=== PATIENT | female | born 1960 | race American Indian/Alaskan Native ===

== ENCOUNTER 2017-07-26 08:27 | Day surgery (SDC) | payer MEDICARE, OTHER ==
--- NOTE | 2017-07-26 09:16 | Short Stay Summary ---
Short Stay Documentation Date of service: 07/26/17 Narrative H&P: 57 year old presents for colonoscopy for high risk screening in view of a personal history of colon polyp at her last colonoscopy 2011. Her brother has also had polyps. - History Principal diagnosis: high risk screening, personal history of colon polyps H&P: obtained from office Past Medical History: diabetes, hypertension, hyperlipidemia, renal failure Past Surgical History: hysterectomy, tonsillectomy, Other (vascular access for dialysis) Social history: no smoking, no alcohol abuse, no prescription drug abuse - Allergies and Medications Current Medications: Allergies Sulfa (Sulfonamide Antibiotics) Allergy (Verified 07/02/15 09:43) Vomiting Home Medications Medication Instructions Recorded Confirmed Last Taken Type Carvedilol [Coreg] 12.5 mg PO DAILY 07/02/15 07/23/17 08/11/15 22:30 History Lisinopril [Zestril TAB] 40 mg PO BID 07/02/15 07/23/17 08/11/15 22:30 History Aspirin EC [Aspirin Enteric Coated 81 mg PO QDAY 08/01/15 07/23/17 07/31/15 History TAB] Insulin Regular, Human [HumuLIN R] 1 - 100 unit SUB-Q PRN PRN 08/01/15 07/23/17 08/10/15 History Isosorbibe Dinit/Hydralazine 1 each PO TID 08/01/15 07/23/17 08/11/15 22:30 History [Bidil Tablet] Levemir Flextouch 15 unit SUB-Q QHS 08/01/15 07/23/17 08/11/15 21:30 History 15 UNITS Simvastatin [Zocor TAB] 40 mg PO QHS 08/01/15 07/23/17 08/11/15 22:30 History Lansoprazole [Prevacid] 15 mg PO QDAY 08/12/15 07/23/17 08/11/15 History Oxycodone HCl/Acetaminophen 1 each PO Q6HR PRN #20 tablet 10/05/15 07/23/17 Unknown Rx [Percocet 10/325 mg] Active Medications Sodium Chloride (Nacl 0.9% 1000 Ml) 1,000 mls @ 50 mls/hr IV DIRECT MARYA - Physical exam General appearance: well-nourished HEENT: PERRLA, EOMI Lungs: Clear to auscultation Heart: Regular rate, Normal S1, Normal S2 Gastrointestinal: normal, obese Neurological: Normal speech - Hospital course Hospital course: Uneventful colonoscopy. - Disposition Condition at discharge: Good Disposition: [id number] TO HOME OR SELFCARE - Discharge Diagnoses (1) Personal history of colonic polyps Status: Acute (2) Internal hemorrhoids Status: Acute (3) Family history of colonic polyps Status: Acute (4) Encounter for screening colonoscopy Status: Acute Short Stay Discharge Plan Activity: other (no driving today) Diet: other (may resume usual diet) Additional Instructions: 1. Repeat colonoscopy for screening in 5 years. 2. First-degree relatives should be informed that polyps run in the family and to begin their colon screening at age 40 rather than age 50. Follow up with: AWA DISLA MD [Primary Care Provider] - 7 Days
[2017-07-26] MEDS: NACL 0.9% 1000 ML 1,000 ML IV SCH ×2 (09:54→10:50)
[2017-07-26] MEDS ORDERED: XYLOCAINE MPF 2% ONE (10:00)
[2017-07-26] MEDS ORDERED: DIPRIVAN 10 MG/ML IV ONE ×2 (10:14)
[2017-07-26] MEDS ORDERED: WATER FOR IRRIG STERILE IR ONE (10:15)
--- NOTE | 2017-07-26 10:54 | Operative Report ---
Operative Report Operative Report: Date of procedure: 07/26/2017 Preprocedure diagnosis: Personal history of colon polyps and family history colon polyps in a first-degree relative Post procedure diagnosis: Internal and external hemorrhoids Procedure name(s): Colonoscopy Surgeon: Shivam Perry MD Anesthesia: Monitored anesthesia care EBL: None Procedure: The indications, techniques, potential complications and alternatives , had been discussed in full detail prior to the date of the exam, and once again on the day of the exam. Questions were encouraged and answered, and consent was thereby obtained. The patient was placed in the left lateral decubitus position, and was medicated by anesthesia services. See the anesthesia records for details. The anal sphincter was digitally dilated, revealing small external hemorrhoids. Tip of a [employer] adult video colonoscope was inserted through the anal sphincter and into the rectal vault. It was then advanced proximally under continuous visualization of the lumen to the cecum without difficulty. The quality of the prep was only fair. With lavage and suctioning, mucosal visualization was adequate. No pathology was found in the cecum. The appendiceal orifice and ileocecal valve appeared normal. From the cecum, the instrument was slowly withdrawn with careful circumferential examination of the colonic mucosa. No pathology was seen in the ascending colon, hepatic flexure, transverse colon, splenic flexure, descending colon or sigmoid colon. The rectum appeared normal from the forward view. Retroflexion in the rectum revealed internal hemorrhoids without bleeding. No other pathology was found. The procedure was very well tolerated. Postprocedure she was monitored in the recovery area of the GI lab to ensure stability prior to her release. See the outpatient record for details regarding instructions to patient, medications and plans for follow-up. Final diagnosis: 1. Internal hemorrhoids 2. Otherwise normal colonoscopy to the cecum, without polyp recurrence Colon screening information: Colonoscopy and [place] 5 years ago, next colonoscopy will be in 5 years. Shivam Perry M.D. Dictated 07/26/2017 at 10:51 AM
[2017-07-26 11:17] VITALS: BP 189/86
--- NOTE | 2017-07-26 11:19 | Post Anesthesia Evaluation ---
- Post Anesthesia Evaluation Patient Participated: Yes Airway Patent: Yes Stable Respiratory Function: Yes Temp > 96.8F: Yes Pain Manageable: Yes Adequeate Hydration: Yes Anesthesia Complications: No
== END 2017-07-26 08:28 | disposition home or self-care (01) ==
LOC: GIO 08:27
PROVIDERS: ATTEND Internal Medicine Gastroenterology
DX: Z86.010 Personal history of colon polyps (principal); K64.4 Residual hemorrhoidal skin tags; K64.8 Other hemorrhoids; I10 Essential (primary) hypertension; E11.9 Type 2 diabetes mellitus without complications; E78.5 Hyperlipidemia, unspecified; Z79.899 Other long term (current) drug therapy; Z90.710 Acquired absence of both cervix and uterus; Z98.890 Other specified postprocedural states; Z79.4 Long term (current) use of insulin; Z79.82 Long term (current) use of aspirin; Z83.71 Family history of colonic polyps
CPT/HCPCS: 45378; 82962; J2704; J7030

== ENCOUNTER 2018-09-03 19:21 | Inpatient (IN) | payer MEDICARE, OTHER ==
--- NOTE | 2018-09-03 20:18 | Emergency Department Report ---
- General Chief Complaint: Wound/Laceration Stated Complaint: POST SURGICAL BLEEDING Time Seen by Provider: 09/03/18 20:00 Source: patient, EMS Mode of arrival: Stretcher Limitations: No Limitations - History of Present Illness Initial Comments: She is a 58-year-old female that presents emergent with complaints of bleeding from her new Vas-Cath site. Patient states today at 3 PM she had a vas cath placed for dialysis in her right chest. Patient states she's been having slow bleeding from the site of her sense. Patient denies profuse bleeding and soaking through the dressing. Patient denies fever and chills. Patient states she has a 3 out of 10 pain at the site. Patient states the pain is better with rest and not moving. Patient states the pain is worse with movement. Patient states that she just wants to site checked to be sure. - Related Data Home Medications Medication Instructions Recorded Confirmed Last Taken Carvedilol [Coreg] 12.5 mg PO DAILY 07/02/15 07/26/17 07/25/17 Lisinopril [Zestril TAB] 40 mg PO BID 07/02/15 07/26/17 07/25/17 Aspirin EC [Aspirin Enteric Coated 81 mg PO QDAY 08/01/15 07/26/17 07/19/17 TAB] Insulin Regular, Human [HumuLIN R] 1 - 100 unit SUB-Q PRN PRN 08/01/15 07/23/17 08/10/15 Isosorbibe Dinit/Hydralazine 1 each PO TID 08/01/15 07/26/17 07/25/17 [Bidil Tablet] Levemir Flextouch 15 unit SUB-Q QHS 08/01/15 07/23/17 08/11/15 21:30 15 UNITS Simvastatin [Zocor TAB] 40 mg PO QHS 08/01/15 07/26/17 07/23/17 Lansoprazole [Prevacid] 15 mg PO QDAY 08/12/15 07/26/17 07/25/17 Previous Rx's Medication Instructions Recorded Last Taken Type Oxycodone HCl/Acetaminophen 1 each PO Q6HR PRN #20 tablet 10/05/15 Unknown Rx [Percocet 10/325 mg] Allergies Allergy/AdvReac Type Severity Reaction Status Date / Time Sulfa (Sulfonamide Allergy Vomiting Verified 07/02/15 09:43 Antibiotics) ED Review of Systems ROS: Stated complaint: POST SURGICAL BLEEDING Other details as noted in HPI Comment: All other systems reviewed and negative Constitutional: denies: chills, fever Eyes: denies: eye pain, eye discharge, vision change ENT: denies: ear pain, throat pain Respiratory: denies: cough, shortness of breath, wheezing Cardiovascular: denies: chest pain, palpitations Endocrine: no symptoms reported Gastrointestinal: denies: abdominal pain, nausea, diarrhea Genitourinary: denies: urgency, dysuria, discharge Musculoskeletal: denies: back pain, joint swelling, arthralgia Skin: denies: rash, lesions Neurological: denies: headache, weakness, paresthesias Psychiatric: denies: anxiety, depression Hematological/Lymphatic: denies: easy bleeding, easy bruising ED Past Medical Hx - Past Medical History Previous Medical History?: Yes Hx Hypertension: Yes Hx Heart Attack/AMI: No Hx Congestive Heart Failure: Yes ("MILD") Hx Diabetes: Yes Hx GERD: Yes Hx Renal Disease: Yes (KIDNEY DOCTOR/DR. AGUIRRE [phone]) Hx Sickle Cell Disease: No Hx Seizures: No Hx Kidney Stones: Yes (NEPHROLITHIASIS) Hx Asthma: No Hx HIV: No - Surgical History Past Surgical History?: Yes Hx Appendectomy: Yes (1992) Additional Surgical History: fistula right arm- to be replaced. Vas Cath Left Upper Chest - Social History Smoking Status: Never Smoker Substance Use Type: None - Medications Home Medications: Home Medications Medication Instructions Recorded Confirmed Last Taken Type Carvedilol [Coreg] 12.5 mg PO DAILY 07/02/15 07/26/17 07/25/17 History Lisinopril [Zestril TAB] 40 mg PO BID 07/02/15 07/26/17 07/25/17 History Aspirin EC [Aspirin Enteric Coated 81 mg PO QDAY 08/01/15 07/26/17 07/19/17 History TAB] Insulin Regular, Human [HumuLIN R] 1 - 100 unit SUB-Q PRN PRN 08/01/15 07/23/17 08/10/15 History Isosorbibe Dinit/Hydralazine 1 each PO TID 08/01/15 07/26/17 07/25/17 History [Bidil Tablet] Levemir Flextouch 15 unit SUB-Q QHS 08/01/15 07/23/17 08/11/15 21:30 History 15 UNITS Simvastatin [Zocor TAB] 40 mg PO QHS 08/01/15 07/26/17 07/23/17 History Lansoprazole [Prevacid] 15 mg PO QDAY 08/12/15 07/26/17 07/25/17 History Oxycodone HCl/Acetaminophen 1 each PO Q6HR PRN #20 tablet 10/05/15 07/23/17 Unknown Rx [Percocet 10/325 mg] ED Physical Exam - General Limitations: No Limitations General appearance: alert, in no apparent distress - Head Head exam: Present: atraumatic, normocephalic - Eye Eye exam: Present: normal appearance - ENT ENT exam: Present: mucous membranes moist - Neck Neck exam: Present: normal inspection - Respiratory Respiratory exam: Present: normal lung sounds bilaterally. Absent: respiratory distress - Cardiovascular Cardiovascular Exam: Present: regular rate, normal rhythm, other (right upper chest Vas-Cath noted. Patient continues to have a slow bleed). Absent: systolic murmur, diastolic murmur, rubs, gallop - GI/Abdominal GI/Abdominal exam: Present: soft, normal bowel sounds - Extremities Exam Extremities exam: Present: normal inspection - Back Exam Back exam: Present: normal inspection - Neurological Exam Neurological exam: Present: alert, oriented X3 - Psychiatric Psychiatric exam: Present: normal affect, normal mood - Skin Skin exam: Present: warm, dry, intact, normal color. Absent: rash ED Course Vital Signs 09/03/18 19:27 Temperature 98.1 F Pulse Rate 71 Respiratory 19 Rate Blood Pressure 177/92 Blood Pressure 177/92 [Left] O2 Sat by Pulse 97 Oximetry - Reevaluation(s) Reevaluation #1: Initial evaluation done. No bleeding noted from the Vas-Cath site. Sterile dressing taken down. New dressing applied under sterile technique. Dressing Kit used. Large sterile Tegaderm placed over along with multiple 4 x 4's under the Tegaderm. Dressing change done in sterile fashion 09/03/18 20:00 starting to bleed. We'll apply pressure dressing. 09/03/18 21:03 Patient continues to bleed. Consult vascular surgery. 09/03/18 22:45 Discussed plan of care and admission with patient. Patient agrees with plan for admission. Patient admitted to the hospitalist service for further evaluation treatment. Saline bag placed directly on catheter site 09/03/18 23:05 Bleeding has improved with saline bag on top of catheter site. 09/04/18 02:09 - Consultations Consultation #1: Vascular surgery consulted. Dr. Lopez wants patient admitted for obs ervation. 09/03/18 23:03 Consultation #2: Hospitalist consult for admission. Hospitalist to assume care of patient and admit patient. 09/03/18 23:04 ED Medical Decision Making - Lab Data Result diagrams: 09/03/18 22:32 - Medical Decision Making Patient is a 58-year-old female that presents emergency room with complaints of bleeding from her newly placed Vas-Cath site. Initially patient's bleeding appeared to be controlled however while in ER patient began to bleed from her Vas-Cath site uncontrollably. Patient's bleeding is a slow oozing. Vascular surgery consultation and recommendations received. Saline bag placed on top of the site and bleeding slowed down. Patient admitted to the hospitalist service for further evaluation treatment and observation. Patient's labs unremarkable except for what appears to be chronic anemia secondary to see daily. Patient h ad a vas cath place for dialysis. - Differential Diagnosis bleeding from surgical site. Anemia Critical Care Time: Yes Critical care attestation.: If time is entered above; I have spent that time in minutes in the direct care of this critically ill patient, excluding procedure time. Critical Care Time: 45 minutes ED Disposition Clinical Impression: Anemia Qualifiers: Anemia type: unspecified type Qualified Code(s): D64.9 - Anemia, unspecified CKD (chronic kidney disease) Qualifiers: Chronic kidney disease stage: unspecified stage Qualified Code(s): N18.9 - Chronic kidney disease, unspecified Bleeding due to dialysis catheter placement Qualifiers: Encounter type: initial encounter Qualified Code(s): T82.838A - Hemorrhage due to vascular prosthetic devices, implants and grafts, initial encounter Disposition: OP ADMIT IP TO THIS HOSP Is pt being admited?: Yes Does the pt Need Aspirin: No Condition: Critical Time of Disposition: 23:07
[2018-09-03 22:51] LABS: Hematocrit 28.8 % (30.3-42.9); Hemoglobin 9.4 gm/dl (10.1-14.3); Mean Corpuscular HGB Conc 33 % (30-34); Mean Corpuscular Volume 71 fl (79-97); Platelet Count 255 K/mm3 (140-440); Red Blood Count 4.07 M/mm3 (3.65-5.03); Red Cell Distribution Width 15.6 % (13.2-15.2)
[2018-09-04] MEDS ORDERED: D50W (25GM) Syringe IV PRN (01:09)
[2018-09-04] MEDS ORDERED: PERCOCET 5/325 PO PRN (01:11)
[2018-09-04] MEDS ORDERED: ROXICODONE PO PRN (01:23)
[2018-09-04] MEDS ORDERED: ROXICODONE ONE (04:12)
[2018-09-04 06:06] LABS: Hematocrit 28.4 % (30.3-42.9); Hemoglobin 8.9 gm/dl (10.1-14.3); Mean Corpuscular HGB Conc 31 % (30-34); Mean Corpuscular Volume 73 fl (79-97); Platelet Count 233 K/mm3 (140-440); Red Blood Count 3.88 M/mm3 (3.65-5.03); Red Cell Distribution Width 15.4 % (13.2-15.2)
[2018-09-04] MEDS ORDERED: TYLENOL PO PRN (06:08)
[2018-09-04] MEDS ORDERED: ZOFRAN IV PRN (06:09)
[2018-09-04] MEDS ORDERED: MORPHINE IV PRN (06:09)
[2018-09-04] MEDS ORDERED: APRESOLINE IV PRN (06:10)
[2018-09-04 06:25] LABS: Albumin 3.5 g/dL (3.9-5); BUN/Creatinine Ratio 5; Blood Urea Nitrogen 77 mg/dL (7-17); Calcium 7.9 mg/dL (8.4-10.2); Hemolysis Index 3
[2018-09-04 06:26] LABS: Alanine Aminotransferase < 5 units/L (7-56)
--- NOTE | 2018-09-04 09:52 | History and Physical Report ---
CHIEF COMPLAINT: Bleeding from the vascath on the right anterior chest wall. HISTORY OF PRESENT ILLNESS: The patient is a 58-year-old female who had a vascath put in the afternoon of 09/03/2018 and subsequently started bleeding from the site. There was no history of fever or chills. The patient complained of pain at the site of the vascath which occurs with movement. There is no history of shortness of breath. No history of nausea or vomiting. The patient presented to the Emergency Room and was evaluated and the vascular surgeon, Dr. Lopez, was consulted and agreed to see the patient. PAST MEDICAL HISTORY: Pertinent for hypertension, congestive heart failure, diabetes mellitus, gastroesophageal reflux disease, renal failure, kidney stones. PAST SURGICAL HISTORY: Pertinent for appendectomy, right arm fistula with a recently placed vascath. FAMILY HISTORY: Noncontributory. SOCIAL HISTORY: The patient does not smoke, does not drink alcohol, and does not use illicit drugs. MEDICATIONS: The patient is on carvedilol 12.5 mg by mouth daily, lisinopril 40 mg daily, insulin regular subQ, dose unknown. The patient is also on isosorbide dinitrate/hydralazine or BiDil 1 by mouth 3 times daily. The patient is on Levemir insulin 15 units subQ at bedtime and Zocor 40 mg at bedtime as well as Prevacid 15 mg by mouth daily. The patient is also on Percocet 10/325 mg 1 by mouth every 6 hours as needed for pain. ALLERGIES: The patient is allergic to SULFA DRUGS. REVIEW OF SYSTEMS: CONSTITUTIONAL: There is no fever, no chills, no diaphoresis. HEENT: There is no headache or sore throat. CARDIOVASCULAR SYSTEM: There is pain around the vascath on the right anterior chest wall area. No orthopnea. RESPIRATORY SYSTEM: There is no shortness of breath or cough. GASTROINTESTINAL SYSTEM: There is no nausea, no vomiting, no abdominal pain, diarrhea or constipation. NEUROLOGICAL SYSTEM: There is no numbness, no dizziness, no altered mental status. MUSCULOSKELETAL SYSTEM: There is no joint pain or swelling. DERMATOLOGICAL SYSTEM: There is no skin rash or itching. GENITOURINARY SYSTEM: There is no dysuria, hematuria, or flank pain. Rest of system review is normal. PHYSICAL EXAMINATION: GENERAL: At the time of exam, the patient was found to be alert, oriented x 3, and not in acute disease. VITAL SIGNS: At the initial time of presentation showed temperature of 98.1 degrees Fahrenheit, pulse of 71, respirations 19, blood pressure 177/92, O2 sat of 97% on room air. HEENT: Showed pupils to be equal, round, and reactive to light and accommodating. Extraocular motions are intact. NECK: Supple with no JVD or carotid bruit. CARDIOVASCULAR SYSTEM: Showed normal first and second heart sounds with no gallops or murmurs. RESPIRATORY SYSTEM: Showed good air entry on both sides of the lungs with no abnormal breath sounds. GASTROINTESTINAL SYSTEM: Showed abdomen to be full, soft, nontender with no organomegaly or rigidity. NEUROLOGIC: Showed no focal deficit. MUSCULOSKELETAL SYSTEM: Showed no joint swelling or tenderness. DERMATOLOGICAL SYSTEM: Showed dressing on the right anterior chest wall soaked with blood. No skin rashes were seen. GENITOURINARY SYSTEM: Showed no costovertebral angle tenderness. PERTINENT LABS AND IMAGING STUDIES: The patient did not have any imaging studies: The patient's CBC showed normal white count with low hemoglobin of 9.4 and low hematocrit of 28.8 with low MCV of 71. The patient's glucose level was slightly elevated with a value of 124. DIAGNOSIS: Bleeding from the vascath. PLAN OF ACTION: 1. The patient will be placed on observation in medical/surgical [facility] with remote telemetry. 2. The patient will have an urgent vascular surgical consult with Dr. Lopez for management of bleeding at the vascath located in the anterior chest wall. 3. The patient will have Nephrology consult with dinkey dispatcher Dr. Love for renal failure managment. 4. The patient will have Accu-Cheks a.c and at bedtime followed by low dose sliding scale using regular insulin coverage. 5. The patient's diet will be consistent carbohydrate, low sodium diet. 6. The patient will have CBC and CMP checked this morning. 7. The patient will be on home medication as shown in the medication reconciliation section. 8. The patient will be on Tylenol 650 mg by mouth every 4 hours for fever and headache and will be on IV morphine 2 mg every 3 hours as needed for pain and also will be on IV Zofran 4 mg every 8 hours as needed for nausea and vomiting. [facility]# [id number] [facility]MAND
[2018-09-04] MEDS: BIDIL 20/37.5MG PO SCH ×3 (11:00→22:39)
[2018-09-04] MEDS: COREG PO SCH (11:01)
[2018-09-04] MEDS: PROTONIX PO SCH (11:01)
[2018-09-04] MEDS: ZESTRIL PO SCH ×2 (11:01→22:33)
[2018-09-04] MEDS: HumuLIN R SUB-Q SCH ×3 (11:02→17:19)
[2018-09-04] MEDS: MORPHINE IV PRN ×2 (11:28→22:42)
--- NOTE | 2018-09-04 12:23 | Event Note ---
Date: 09/04/18 58-year-old female patient was admitted this morning through emergency room with bleeding from the Vas-Cath of anterior chest wall, patient is being symptomatically managed Vascular and nephrology consulted, Medical records reviewed, agree with the current management, follow vascular and nephrology evaluation and recommendations
[2018-09-04] MEDS ORDERED: NACL 0.9% 1000 ML 1,000 ML ONE (13:44)
[2018-09-04] MEDS ORDERED: DDAVP 25 MCG in NACL 0.9% 50 ML IV ONE (13:46)
--- NOTE | 2018-09-04 13:59 | Consultation ---
History of Present Illness - Reason for Consult Consult date: 09/04/18 bleeding from permcath site Requesting physician: CHRISTY BARRIGA III - History of Present Illness Patient with long-standing dialysis history and previous permanent access creations bilaterally was left on the right was sent to dialysis Center for declot of her right upper extremity access. This was unsuccessful and right IJ PermCath was placed. Patient had significant bleeding from the site that caused her to get to ER. multiple dressings were changed and vascular surgery called. As recommended pressure dressing was placed and bleeding subsided. Patient missed a few dialysis sessions. Her previous dialysis access was created by Dr. Darnell at [place]. Past History Past Medical History: hypertension, renal failure Past Surgical History: Other (the fistula placement bilaterally) Medications and Allergies Allergies Allergy/AdvReac Type Severity Reaction Status Date / Time Sulfa (Sulfonamide Allergy Vomiting Verified 07/02/15 09:43 Antibiotics) Home Medications Medication Instructions Recorded Confirmed Last Taken Type Carvedilol [Coreg] 12.5 mg PO DAILY 07/02/15 07/26/17 07/25/17 History Lisinopril [Zestril TAB] 40 mg PO BID 07/02/15 07/26/17 07/25/17 History Aspirin EC [Aspirin Enteric Coated 81 mg PO QDAY 08/01/15 07/26/17 07/19/17 History TAB] Insulin Regular, Human [HumuLIN R] 1 - 100 unit SUB-Q PRN PRN 08/01/15 07/23/17 08/10/15 History Isosorbibe Dinit/Hydralazine 1 each PO TID 08/01/15 07/26/17 07/25/17 History [Bidil Tablet] Levemir Flextouch 15 unit SUB-Q QHS 08/01/15 07/23/17 08/11/15 21:30 History 15 UNITS Simvastatin [Zocor TAB] 40 mg PO QHS 08/01/15 07/26/17 07/23/17 History Lansoprazole [Prevacid] 15 mg PO QDAY 08/12/15 07/26/17 07/25/17 History Oxycodone HCl/Acetaminophen 1 each PO Q6HR PRN #20 tablet 10/05/15 07/23/17 Unknown Rx [Percocet 10/325 mg] Active Meds: Active Medications Acetaminophen (Tylenol) 650 mg PO Q4H PRN PRN Reason: Fever >101 Carvedilol (Coreg) 12.5 mg PO DAILY [facility] Last Admin: 09/04/18 11:01 Dose: 12.5 mg Documented by: Dextrose (D50w (25gm) Syringe) 50 ml IV PRN PRN PRN Reason: Hypoglycemia Hydralazine HCl (Apresoline) 20 mg IV Q6H PRN PRN Reason: Blood Pressure Last Admin: 09/04/18 06:50 Dose: 20 mg Documented by: Desmopressin Acetate 25 mcg/ (Sodium Chloride) 56.25 mls @ 100 mls/hr IV ONCE ONE Stop: 09/04/18 14:19 Insulin Human Regular (Humulin R) 0 units SUB-Q AC [facility]; Protocol Last Admin: 09/04/18 11:02 Dose: Not Given Documented by: Insulin Human Regular (Humulin R) 0 units SUB-Q QHS [facility]; Protocol Isosorbide Dinitrate/Hydralazine (Bidil 20/37.5mg) 1 each PO TID [facility] Last Admin: 09/04/18 13:51 Dose: Not Given Documented by: Lisinopril (Zestril) 40 mg PO BID [facility] Last Admin: 09/04/18 11:01 Dose: 40 mg Documented by: Morphine Sulfate (Morphine) 2 mg IV Q3H PRN PRN Reason: Pain , MODERATE Last Admin: 09/04/18 11:28 Dose: 2 mg Documented by: Ondansetron HCl (Zofran) 4 mg IV Q4H PRN PRN Reason: Nausea And Vomiting Oxycodone HCl (Roxicodone) 5 mg PO Q6H PRN PRN Reason: Pain, Moderate (4-6) Last Admin: 09/04/18 04:14 Dose: 5 mg Documented by: Oxycodone/Acetaminophen (Percocet 5/325) 1 tab PO Q6H PRN PRN Reason: Pain, Moderate (4-6) Last Admin: 09/04/18 04:15 Dose: 1 tab Documented by: Pantoprazole Sodium (Protonix) 20 mg PO QDAY [facility] Last Admin: 09/04/18 11:01 Dose: 20 mg Documented by: Pravastatin Sodium (Pravachol) 80 mg PO QHS [facility] Review of Systems All systems: negative (mentioned in HPI) Exam - Physical Exam Narrative exam: Right IJ PermCath with saturated dressing and clotted blood. - Constitutional Vitals: Temp Pulse Resp BP Pulse Ox 98.3 F 70 18 130/55 97 09/04/18 11:46 09/04/18 11:46 09/04/18 11:46 09/04/18 11:46 09/04/18 11:46 Results - Labs CBC & Chem 7: 09/04/18 05:35 09/04/18 05:35 Labs: Abnormal lab results 09/03/18 09/04/18 09/04/18 Range/Units 22:32 03:21 05:35 Hgb 9.4 L 8.9 L (10.1-14.3) gm/dl Hct 28.8 L 28.4 L (30.3-42.9) % MCV 71 L 73 L (79-97) fl MCH 23 L 23 L (28-32) pg RDW 15.6 H 15.4 H (13.2-15.2) % Sodium (137-145) mmol/L Carbon Dioxide (22-30) mmol/L BUN (7-17) mg/dL Creatinine (0.7-1.2) mg/dL Glucose (65-100) mg/dL POC Glucose 124 H (70-105) Calcium (8.4-10.2) mg/dL ALT (7-56) units/L Albumin (3.9-5) g/dL 09/04/18 Range/Units 05:35 Hgb (10.1-14.3) gm/dl Hct (30.3-42.9) % MCV (79-97) fl MCH (28-32) pg RDW (13.2-15.2) % Sodium 134 L (137-145) mmol/L Carbon Dioxide 17 L (22-30) mmol/L BUN 77 H (7-17) mg/dL Creatinine 15.7 H (0.7-1.2) mg/dL Glucose 108 H (65-100) mg/dL POC Glucose (70-105) Calcium 7.9 L (8.4-10.2) mg/dL ALT < 5 L (7-56) units/L Albumin 3.5 L (3.9-5) g/dL Assessment and Plan End-stage renal disease on hemodialysis with failed permanent access, status post PermCath placement with bleeding Patient is seen at the bedside, her saturated clotted dressing was changed, clot was removed and cleaned, dressing was placed under sterile conditions Pressure dressing was applied using saline back and manual pressure. Patient might have uremic platelet dysfunction and 0.3 mcg/kg of DDAVP was ordered to be given over 30 minutes.
[2018-09-04] MEDS: PRAVACHOL PO SCH (22:39)
[2018-09-05] MEDS: HumuLIN R SUB-Q SCH ×5 (00:13→22:04)
[2018-09-05 03:41] LABS: Basophils # (Auto) 0.1 K/mm3 (0.0-0.1); Eosinophils # (Auto) 0.2 K/mm3 (0.0-0.4); Eosinophils % (Auto) 3.4 % (0.0-4.3); Hematocrit 24.6 % (30.3-42.9); Hemoglobin 7.8 gm/dl (10.1-14.3); Lymphocytes # (Auto) 1.3 K/mm3 (1.2-5.4); Mean Corpuscular HGB Conc 32 % (30-34); Mean Corpuscular Volume 72 fl (79-97); Monocytes # (Auto) 0.8 K/mm3 (0.0-0.8); Monocytes % (Auto) 12.8 % (0.0-7.3); Platelet Count 195 K/mm3 (140-440); Red Cell Distribution Width 15.5 % (13.2-15.2)
[2018-09-05 03:52] LABS: Calcium 7.8 mg/dL (8.4-10.2)
[2018-09-05] MEDS: BIDIL 20/37.5MG PO SCH ×3 (08:00→20:58)
--- NOTE | 2018-09-05 09:31 | Progress Note ---
Subjective Date of service: 09/05/18 Interval history: Patient with right upper extremity thrombosed AV access status post placement of right neck tunneled hemodialysis catheter. She has has no further bleeding since admission. The patient will ultimately require thrombectomy of her AV access versus creation of a new access. We'll obtain vascular ultrasound of her upper extremities as she has previously had accesses on both arms. Patient dialyzed as Wednesday. Her thrombectomy and/or possible surgery will not require continued admission and wants to and is stable for discharge, she may be discharged follow-up as an outpatient for either procedure. Objective - Constitutional Vitals: Vital Signs - 12hr 09/04/18 09/04/18 09/04/18 22:33 22:39 23:51 Temperature 97.4 F L Pulse Rate 71 71 72 Respiratory 18 Rate Blood Pressure 141/71 141/70 122/66 O2 Sat by Pulse 91 Oximetry 09/05/18 05:59 Temperature 98.4 F Pulse Rate 74 Respiratory 18 Rate Blood Pressure 138/67 O2 Sat by Pulse 92 Oximetry - Labs CBC & Chem 7: 09/05/18 03:05 09/05/18 03:05 Labs: Abnormal lab results 09/05/18 09/05/18 09/05/18 Range/Units 03:05 03:05 08:27 RBC 3.40 L (3.65-5.03) M/mm3 Hgb 7.8 L (10.1-14.3) gm/dl Hct 24.6 L (30.3-42.9) % MCV 72 L (79-97) fl MCH 23 L (28-32) pg RDW 15.5 H (13.2-15.2) % [place] % (Auto) 12.8 H (0.0-7.3) % Sodium 135 L (137-145) mmol/L Carbon Dioxide 18 L (22-30) mmol/L BUN 85 H (7-17) mg/dL Creatinine 16.9 H (0.7-1.2) mg/dL Glucose 115 H (65-100) mg/dL POC Glucose 130 H (70-105) Calcium 7.8 L (8.4-10.2) mg/dL Medications & Allergies - Medications Allergies/Adverse Reactions: Allergies Sulfa (Sulfonamide Antibiotics) Allergy (Verified 07/02/15 09:43) Vomiting Home Medications: Home Medications Medication Instructions Recorded Confirmed Last Taken Type Carvedilol [Coreg] 12.5 mg PO DAILY 07/02/15 07/26/17 07/25/17 History Lisinopril [Zestril TAB] 40 mg PO BID 07/02/15 07/26/17 07/25/17 History Aspirin EC [Aspirin Enteric Coated 81 mg PO QDAY 08/01/15 07/26/17 07/19/17 History TAB] Insulin Regular, Human [HumuLIN R] 1 - 100 unit SUB-Q PRN PRN 08/01/15 07/23/17 08/10/15 History Isosorbibe Dinit/Hydralazine 1 each PO TID 08/01/15 07/26/17 07/25/17 History [Bidil Tablet] Levemir Flextouch 15 unit SUB-Q QHS 08/01/15 07/23/17 08/11/15 21:30 History 15 UNITS Simvastatin [Zocor TAB] 40 mg PO QHS 08/01/15 07/26/17 07/23/17 History Lansoprazole [Prevacid] 15 mg PO QDAY 08/12/15 07/26/17 07/25/17 History Oxycodone HCl/Acetaminophen 1 each PO Q6HR PRN #20 tablet 10/05/15 07/23/17 Unknown Rx [Percocet 10/325 mg] Active Medications: Generic Name Dose Route Start Last Admin Trade Name Freq PRN Reason Stop Dose Admin Acetaminophen 650 mg 09/04/18 06:08 Tylenol PO Q4H PRN Fever >101 Carvedilol 12.5 mg 09/04/18 10:00 09/04/18 11:01 Coreg PO 12.5 mg DAILY MARYA Administration Dextrose 50 ml 09/04/18 01:09 D50w (25gm) Syringe IV PRN PRN Hypoglycemia Hydralazine HCl 20 mg 09/04/18 06:10 09/04/18 06:50 Apresoline IV 20 mg Q6H PRN Administration Blood Pressure Insulin Human Regular 0 units 09/04/18 07:30 09/04/18 17:19 Humulin R SUB-Q Not Given [facility] Protocol Insulin Human Regular 0 units 09/04/18 22:00 09/05/18 00:13 Humulin R SUB-Q Not Given QHS [facility] Protocol Isosorbide Dinitrate/Hydralazine 1 each 09/04/18 08:00 09/04/18 22:39 Bidil 20/37.5mg PO 1 each TID MARYA Administration Lisinopril 40 mg 09/04/18 10:00 09/04/18 22:33 Zestril PO 40 mg BID MARYA Administration Morphine Sulfate 2 mg 09/04/18 11:16 09/04/18 22:42 Morphine IV 2 mg Q3H PRN Administration Pain , MODERATE Ondansetron HCl 4 mg 09/04/18 06:09 09/04/18 14:50 Zofran IV 4 mg Q4H PRN Administration Nausea And Vomiting Oxycodone HCl 5 mg 09/04/18 01:23 09/04/18 04:14 Roxicodone PO 5 mg Q6H PRN Administration Pain, Moderate (4-6) Oxycodone/Acetaminophen 1 tab 09/04/18 01:11 09/04/18 04:15 Percocet 5/325 PO 1 tab Q6H PRN Administration Pain, Moderate (4-6) Pantoprazole Sodium 20 mg 09/04/18 10:00 09/04/18 11:01 Protonix PO 20 mg QDAY [facility] Administration Pravastatin Sodium 80 mg 09/04/18 22:00 09/04/18 22:39 Pravachol PO 80 mg QHS MARYA Administration
[2018-09-05] MEDS: COREG PO SCH (10:09)
[2018-09-05] MEDS: ZESTRIL PO SCH ×2 (10:09→22:05)
[2018-09-05] MEDS: PROTONIX PO SCH (10:09)
--- NOTE | 2018-09-05 10:54 | Progress Note ---
Assessment and Plan Assessment and plan: Patient with history of long-standing hemodialysis was sent from the dialysis center recently for declot of her right upper extremity HD access. Patient had right IJ permacath was placed recently, patient returned to the ER and was admitted with significant bleeding from the site, patient was evaluated by vascular, bleeding was controlled by pressure dressing, and is scheduled for hemodialysis today --End-stage renal disease on hemodialysis; hemodialysis per schedule Nephrology following --Hypertension; moderate control, continue current antihypertensives and when necessary medications --Type 2 diabetes mellitus; Accu-Chek sliding scale coverage and ADA diet and insulin as needed --Obesity; BMI 32.3, advise weight reduction when medically stable --DVT prophylaxis; heparin and renal dose --Discharge Planning per case management Closely monitor the patient and adjust management as needed Possible discharge in 1-2 days if stable Disposition; possible discharge in 1-2 days if stable History Interval history: Patient seen and examined medical records reviewed Patient feels slightly better Scheduled for hemodialysis today Alert awake oriented 3 Vital signs noted Hospitalist Physical - Constitutional Vitals: Temp Pulse Resp BP Pulse Ox 98.4 F 74 18 138/67 92 09/05/18 05:59 09/05/18 05:59 09/05/18 05:59 09/05/18 05:59 09/05/18 05:59 General appearance: Present: no acute distress, well-nourished, obese - EENT Eyes: Present: PERRL, EOM intact - Neck Neck: Present: supple, normal ROM - Respiratory Respiratory effort: normal Respiratory: bilateral: diminished, negative: rales, rhonchi, wheezing - Cardiovascular Rhythm: regular Heart Sounds: Present: S1 & S2 - Extremities Extremities: no ischemia, No edema - Abdominal General gastrointestinal: soft, non-tender, non-distended, normal bowel sounds - Integumentary Integumentary: Present: clear, warm - Psychiatric Psychiatric: appropriate mood/affect, cooperative - Neurologic Neurologic: CNII-XII intact, moves all extremities Results - Labs CBC & Chem 7: 09/05/18 03:05 09/05/18 03:05 Labs: Laboratory Last Values WBC 6.6 K/mm3 (4.5-11.0) 09/05/18 03:05 RBC 3.40 M/mm3 (3.65-5.03) L 09/05/18 03:05 Hgb 7.8 gm/dl (10.1-14.3) L 09/05/18 03:05 Hct 24.6 % (30.3-42.9) L 09/05/18 03:05 MCV 72 fl (79-97) L 09/05/18 03:05 MCH 23 pg (28-32) L 09/05/18 03:05 MCHC 32 % (30-34) 09/05/18 03:05 RDW 15.5 % (13.2-15.2) H 09/05/18 03:05 Plt Count 195 K/mm3 (140-440) 09/05/18 03:05 Lymph % (Auto) 20.0 % (13.4-35.0) 09/05/18 03:05 [place] % (Auto) 12.8 % (0.0-7.3) H 09/05/18 03:05 Eos % (Auto) 3.4 % (0.0-4.3) 09/05/18 03:05 Baso % (Auto) 1.0 % (0.0-1.8) 09/05/18 03:05 Lymph # 1.3 K/mm3 (1.2-5.4) 09/05/18 03:05 [place] # 0.8 K/mm3 (0.0-0.8) 09/05/18 03:05 Eos # 0.2 K/mm3 (0.0-0.4) 09/05/18 03:05 Baso # 0.1 K/mm3 (0.0-0.1) 09/05/18 03:05 Seg Neutrophils % 62.8 % (40.0-70.0) 09/05/18 03:05 Seg Neutrophils # 4.2 K/mm3 (1.8-7.7) 09/05/18 03:05 Sodium 135 mmol/L (137-145) L 09/05/18 03:05 Potassium 4.5 mmol/L (3.6-5.0) 09/05/18 03:05 Chloride 98.9 mmol/L (98-107) 09/05/18 03:05 Carbon Dioxide 18 mmol/L (22-30) L 09/05/18 03:05 Anion Gap 23 mmol/L 09/05/18 03:05 BUN 85 mg/dL (7-17) H 09/05/18 03:05 Creatinine 16.9 mg/dL (0.7-1.2) H 09/05/18 03:05 Estimated GFR 3 ml/min 09/05/18 03:05 BUN/Creatinine Ratio 5 % 09/05/18 03:05 Glucose 115 mg/dL (65-100) H 09/05/18 03:05 POC Glucose 130 (70-105) H 09/05/18 08:27 Calcium 7.8 mg/dL (8.4-10.2) L 09/05/18 03:05 Total Bilirubin 0.30 mg/dL (0.1-1.2) 09/04/18 05:35 AST 10 units/L (5-40) 09/04/18 05:35 ALT < 5 units/L (7-56) L 09/04/18 05:35 Alkaline Phosphatase 83 units/L (35-129) 09/04/18 05:35 Total Protein 6.7 g/dL (6.3-8.2) 09/04/18 05:35 Albumin 3.5 g/dL (3.9-5) L 09/04/18 05:35 Albumin/Globulin Ratio 1.1 % 09/04/18 05:35
--- NOTE | 2018-09-05 11:16 | Consultation ---
History of Present Illness - Reason for Consult Consult date: 09/05/18 end stage renal disease Requesting physician: OREN FOSTER - History of Present Illness She is a 58-year-old female that presents emergent with complaints of bleeding from her new Vas-Cath site. Patient states today at 3 PM she had a vas cath placed for dialysis in her right chest. Patient states she's been having slow bleeding from the site of her sense. Patient denies profuse bleeding and soaking through the dressing. Patient denies fever and chills. Patient states she has a 3 out of 10 pain at the site. Patient states the pain is better with rest and not moving. Patient states the pain is worse with movement. Patient states that she just wants to site checked to be sure. ROS: Stated complaint: POST SURGICAL BLEEDING Other details as noted in HPI Comment: All other systems reviewed and negative Constitutional: denies: chills, fever Eyes: denies: eye pain, eye discharge, vision change ENT: denies: ear pain, throat pain Respiratory: denies: cough, shortness of breath, wheezing Cardiovascular: denies: chest pain, palpitations Endocrine: no symptoms reported Gastrointestinal: denies: abdominal pain, nausea, diarrhea Genitourinary: denies: urgency, dysuria, discharge Musculoskeletal: denies: back pain, joint swelling, arthralgia Skin: denies: rash, lesions Neurological: denies: headache, weakness, paresthesias Psychiatric: denies: anxiety, depression Hematological/Lymphatic: denies: easy bleeding, easy bruising - Past Medical History Previous Medical History?: Yes Hx Hypertension: Yes Hx Heart Attack/AMI: No Hx Congestive Heart Failure: Yes ("MILD") Hx Diabetes: Yes Hx GERD: Yes Hx Renal Disease: Yes (KIDNEY DOCTOR/DR. AGUIRRE [phone]) Hx Sickle Cell Disease: No Hx Seizures: No Hx Kidney Stones: Yes (NEPHROLITHIASIS) Hx Asthma: No Hx HIV: No - Surgical History Past Surgical History?: Yes Hx Appendectomy: Yes (1992) Additional Surgical History: fistula right arm- to be replaced. Vas Cath Left Upper Chest - Social History Smoking Status: Never Smoker Substance Use Type: None Past History Past Medical History: hypertension, renal failure Past Surgical History: Other (the fistula placement bilaterally) Medications and Allergies Allergies Allergy/AdvReac Type Severity Reaction Status Date / Time Sulfa (Sulfonamide Allergy Vomiting Verified 07/02/15 09:43 Antibiotics) Home Medications Medication Instructions Recorded Confirmed Last Taken Type Carvedilol [Coreg] 12.5 mg PO DAILY 07/02/15 07/26/17 07/25/17 History Lisinopril [Zestril TAB] 40 mg PO BID 07/02/15 07/26/17 07/25/17 History Aspirin EC [Aspirin Enteric Coated 81 mg PO QDAY 08/01/15 07/26/17 07/19/17 History TAB] Insulin Regular, Human [HumuLIN R] 1 - 100 unit SUB-Q PRN PRN 08/01/15 07/23/17 08/10/15 History Isosorbibe Dinit/Hydralazine 1 each PO TID 08/01/15 07/26/17 07/25/17 History [Bidil Tablet] Levemir Flextouch 15 unit SUB-Q QHS 08/01/15 07/23/17 08/11/15 21:30 History 15 UNITS Simvastatin [Zocor TAB] 40 mg PO QHS 08/01/15 07/26/17 07/23/17 History Lansoprazole [Prevacid] 15 mg PO QDAY 08/12/15 07/26/17 07/25/17 History Oxycodone HCl/Acetaminophen 1 each PO Q6HR PRN #20 tablet 10/05/15 07/23/17 Unknown Rx [Percocet 10/325 mg] Active Meds: Active Medications Acetaminophen (Tylenol) 650 mg PO Q4H PRN PRN Reason: Fever >101 Carvedilol (Coreg) 12.5 mg PO DAILY [facility] Last Admin: 09/05/18 10:09 Dose: 12.5 mg Documented by: Dextrose (D50w (25gm) Syringe) 50 ml IV PRN PRN PRN Reason: Hypoglycemia Hydralazine HCl (Apresoline) 20 mg IV Q6H PRN PRN Reason: Blood Pressure Last Admin: 09/04/18 06:50 Dose: 20 mg Documented by: Insulin Human Regular (Humulin R) 0 units SUB-Q [facility]; Protocol Last Admin: 09/05/18 07:30 Dose: Not Given Documented by: Insulin Human Regular (Humulin R) 0 units SUB-Q [facility]; Protocol Last Admin: 09/05/18 00:13 Dose: Not Given Documented by: Isosorbide Dinitrate/Hydralazine (Bidil 20/37.5mg) 1 each PO TID [facility] Last Admin: 09/05/18 08:00 Dose: Not Given Documented by: Lisinopril (Zestril) 40 mg PO BID [facility] Last Admin: 09/05/18 10:09 Dose: 40 mg Documented by: Morphine Sulfate (Morphine) 2 mg IV Q3H PRN PRN Reason: Pain , MODERATE Last Admin: 09/04/18 22:42 Dose: 2 mg Documented by: Ondansetron HCl (Zofran) 4 mg IV Q4H PRN PRN Reason: Nausea And Vomiting Last Admin: 09/04/18 14:50 Dose: 4 mg Documented by: Oxycodone HCl (Roxicodone) 5 mg PO Q6H PRN PRN Reason: Pain, Moderate (4-6) Last Admin: 09/04/18 04:14 Dose: 5 mg Documented by: Oxycodone/Acetaminophen (Percocet 5/325) 1 tab PO Q6H PRN PRN Reason: Pain, Moderate (4-6) Last Admin: 09/04/18 04:15 Dose: 1 tab Documented by: Pantoprazole Sodium (Protonix) 20 mg PO QDAY [facility] Last Admin: 09/05/18 10:09 Dose: 20 mg Documented by: Pravastatin Sodium (Pravachol) 80 mg PO QHS [facility] Last Admin: 09/04/18 22:39 Dose: 80 mg Documented by: Exam - Vital Signs Vital signs: Vital Signs Temp Pulse Resp BP Pulse Ox 98.1 F 71 19 177/92 97 09/03/18 19:27 09/03/18 19:27 09/03/18 19:27 09/03/18 19:27 09/03/18 19:27 - Physical Exam Narrative exam: - General Limitations: No Limitations General appearance: alert, in no apparent distress - Head Head exam: Present: atraumatic, normocephalic - Eye Eye exam: Present: normal appearance - ENT ENT exam: Present: mucous membranes moist - Neck Neck exam: Present: normal inspection - Respiratory Respiratory exam: Present: normal lung sounds bilaterally. Absent: respiratory distress - Cardiovascular Cardiovascular Exam: Present: regular rate, normal rhythm, other (right upper chest Vas-Cath noted. Patient continues to have a slow bleed). Absent: systolic murmur, diastolic murmur, rubs, gallop - GI/Abdominal GI/Abdominal exam: Present: soft, normal bowel sounds - Extremities Exam Extremities exam: Present: normal inspection - Back Exam Back exam: Present: normal inspection - Neurological Exam Neurological exam: Present: alert, oriented X3 - Psychiatric Psychiatric exam: Present: normal affect, normal mood - Skin Skin exam: Present: warm, dry, intact, normal color. Absent: rash Results - Lab Results 09/05/18 03:05 09/05/18 03:05 Most recent lab results Calcium 7.8 mg/dL (8.4-10.2) L 09/05/18 03:05 Assessment and Plan Impression: * ESRD * anemia esrd * Bleed tunnelled catheter site * HTN Plan: * hd today * no heparin * strict i/os * daily lytes * uf as tolerated with hd * ok to dc once ok with vascular
[2018-09-05] MEDS ORDERED: PROCRIT IV PRN (11:43)
[2018-09-05] MEDS ORDERED: IRON SUCROSE IV SCH (12:00)
[2018-09-05] MEDS ORDERED: HEPARIN IV ONE (12:00)
[2018-09-05] MEDS ORDERED: NACL 0.9% 100 ML IV PRN ×2 (12:00→16:26)
[2018-09-05 17:17] LABS: Hepatitis B Surface Antigen Non-Reactive (Negative); Hepatitis C Virus Antibody Non-Reactive (NonReactive)
[2018-09-05] MEDS ORDERED: NACL 0.9 (PRIMING MACHINE ONLY DIALYSIS) MC ONE (18:01)
[2018-09-05] MEDS: PRAVACHOL PO SCH (22:05)
[2018-09-05] MEDS: MORPHINE IV PRN (22:41)
[2018-09-06 06:22] LABS: Basophils # (Auto) 0.1 K/mm3 (0.0-0.1); Basophils % (Auto) 0.8 % (0.0-1.8); Eosinophils # (Auto) 0.3 K/mm3 (0.0-0.4); Eosinophils % (Auto) 3.4 % (0.0-4.3); Hematocrit 26.3 % (30.3-42.9); Hemoglobin 8.3 gm/dl (10.1-14.3); Lymphocytes # (Auto) 1.4 K/mm3 (1.2-5.4); Lymphocytes % (Auto) 17.9 % (13.4-35.0); Mean Corpuscular HGB Conc 32 % (30-34); Mean Corpuscular Volume 71 fl (79-97); Monocytes # (Auto) 1.2 K/mm3 (0.0-0.8); Monocytes % (Auto) 15.1 % (0.0-7.3); Platelet Count 192 K/mm3 (140-440); Red Cell Distribution Width 15.3 % (13.2-15.2)
[2018-09-06 06:52] LABS: Calcium 8.2 mg/dL (8.4-10.2)
[2018-09-06] MEDS: HumuLIN R SUB-Q SCH ×2 (07:30→11:30)
[2018-09-06] MEDS: BIDIL 20/37.5MG PO SCH ×2 (10:00→13:16)
[2018-09-06] MEDS: PROTONIX PO SCH (12:38)
[2018-09-06] MEDS: ZESTRIL PO SCH (12:38)
[2018-09-06] MEDS: COREG PO SCH (12:39)
[2018-09-06 12:49] VITALS: BP 138/70
--- NOTE | 2018-09-06 13:08 | Event Note ---
Date: 09/06/18 PermCath functioning well, no bleeding Patient will follow up in our office to plan for permanent access.
--- NOTE | 2018-09-06 14:04 | Discharge Summary ---
Providers - Providers Date of Admission: 09/04/18 03:41 Date of discharge: 09/06/18 Attending physician: HANNAH CABRERA 09/04/18 01:04 Consult to Physician [CONS] Urgent Comment: Consulting Provider: OREN FOSTER Physician Instructions: Reason For Exam: BLEEDING FROM RECENTLY PLACED RT CHEST VASCATH. 09/05/18 10:50 Consult to Physician [CONS] Routine Comment: Consulting Provider: JEAN TEMPLETON Physician Instructions: Reason For Exam: ESRD on HD Primary care physician: SINAN VERGARA Hospitalization Condition: Stable Hospital course: Patient is a 58 yo woman with a history of IDDM, hypertension, dyslipidemia, ESRD on hemodialysis who presented to [facility] ED with bleeding from her new perm-a-cath site. 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 Disposition: DC-01 TO HOME OR SELFCARE Time spent for discharge: 35 minutes Core Measure Documentation - Palliative Care Palliative Care/ Comfort Measures: Not Applicable - Core Measures Any of the following diagnoses?: none - VTE Discharge Requirements Deep Vein Thrombosis/Pulmonary Embolism Present on Admission: No Has pt received <5 days of overlap therapy or INR<2.0: No Anticoagulant overlap therapy prescribed at discharge: No Contraindication No Overlap Therapy order at DC: Not Indicated Exam - Constitutional Vitals: Temp Pulse Resp BP Pulse Ox 98.1 F 77 20 138/70 94 09/06/18 12:02 09/06/18 12:02 09/06/18 12:02 09/06/18 12:02 09/06/18 12:02 General appearance: Present: no acute distress - EENT Eyes: Present: PERRL ENT: hearing intact - Neck Neck: Present: supple - Respiratory Respiratory effort: normal Respiratory: bilateral: CTA - Cardiovascular Rhythm: regular Heart Sounds: Present: S1 & S2 - Abdominal General gastrointestinal: Present: soft, non-tender, non-distended, normal bowel sounds - Integumentary Integumentary: Present: clear, dry - Musculoskeletal Musculoskeletal: strength equal bilaterally - Psychiatric Psychiatric: appropriate mood/affect - Neurologic Neurologic: CNII-XII intact, no focal deficits, moves all extremities Plan Activity: other (no strenous activity unless cleared by PCP) Diet: renal Follow up with: SINAN VERGARA MD [Primary Care Provider] - 3-5 Days OREN FOSTER DO [Staff Physician] - 7 Days JEAN TEMPLETON MD [Staff Physician] - 7 Days
--- NOTE | 2018-09-06 14:09 | Vascular Lab Report ---
FINAL REPORT EXAM: VL HEMODIALYSIS ACCESS HISTORY: evaluate upper extremities for dialysis fistula COMPARISON: None. TECHNIQUE: Duplex ultrasound of the right upper extremity arterial venous fistula was performed. FINDINGS: There is an occluded arteriovenous fistula. The right brachial artery is patent with a peak systolic velocity of 76 centimeters/second. IMPRESSION: Occluded right arterial venous fistula. Right brachial artery is patent with peak systolic velocity of 76 centimeters/second.
--- NOTE | 2018-09-06 14:59 | Vascular Lab Report ---
FINAL REPORT EXAM: VL VENOUS DUPLEX UE BILAT HISTORY: evaluate upper extremities for dialysis fistula COMPARISON: None. TECHNIQUE: Bilateral vein mapping was performed. FINDINGS: There is a right brachial artery to basilic vein arterial venous fistula that is occluded. There is also an old left brachial artery to basilic vein arterial venous fistula that is occluded. Diameters of the veins of the bilateral upper extremities are as follows (centimeters): Right internal jugular vein: 0.44 Right subclavian vein: 1.17 Right axillary vein: 1.02 Right brachial vein is bifurcated Medial branch, proximal: 0.77 Medial branch mid: 0.44 Medial branch distal: 0.39 Lateral branch: Proximal: 0.53 Lateral branch, mid: 0.48 Lateral branch distal: 0.42 Right cephalic vein, proximal: 0.36 Right cephalic vein at the level of the antecubital fossa: 0.26 Right cephalic vein in the proximal forearm: 0.36 Right cephalic vein in the mid forearm: 0.38 Right cephalic vein in the distal forearm: 0.18 Left internal jugular vein: 1.29 Left subclavian vein: 0.93 Left axillary vein: 0.83 Left ht brachial vein is bifurcated Medial branch, proximal: 1.02 Medial branch mid: 0.58 Medial branch distal: 0.25 Lateral branch: Proximal: 0.67 Lateral branch, mid: 0.26 Lateral branch distal: 0.24 Left cephalic vein, proximal: 0.33 Left cephalic vein at the level of the antecubital fossa: 0.25 Left cephalic vein in the proximal forearm: 0.09 Left cephalic vein in the mid forearm: 0.08 Left cephalic vein in the distal forearm: 0.09 Peak systolic velocity of the right brachial artery is 78 centimeters/second. Peak systolic velocity of the right radial artery is 49 centimeters/second. Peak systolic velocity of the left brachial artery is 74 centimeters/second. Peak systolic velocity of the left radial artery is 45 centimeters/second. IMPRESSION: Vein mapping of the bilateral upper extremities as described above. Occluded prior bilateral arterial venous fistulous.
--- NOTE | 2018-09-06 15:41 | Progress Note ---
Assessment and Plan Impression: * ESRD * anemia esrd * Bleed tunnelled catheter site * HTN Plan: * hd qMWF * no heparin * strict i/os * daily lytes * uf as tolerated with hd * ok to dc once ok with vascular Subjective Date of service: 09/06/18 Principal diagnosis: esrd Interval history: resting in bed today Objective - Exam Narrative Exam: - General Limitations: No Limitations General appearance: alert, in no apparent distress - Head Head exam: Present: atraumatic, normocephalic - Eye Eye exam: Present: normal appearance - ENT ENT exam: Present: mucous membranes moist - Neck Neck exam: Present: normal inspection - Respiratory Respiratory exam: Present: normal lung sounds bilaterally. Absent: respiratory distress - Cardiovascular Cardiovascular Exam: Present: regular rate, normal rhythm, other (right upper chest Vas-Cath noted. Patient continues to have a slow bleed). Absent: systolic murmur, diastolic murmur, rubs, gallop - GI/Abdominal GI/Abdominal exam: Present: soft, normal bowel sounds - Extremities Exam Extremities exam: Present: normal inspection - Back Exam Back exam: Present: normal inspection - Neurological Exam Neurological exam: Present: alert, oriented X3 - Psychiatric Psychiatric exam: Present: normal affect, normal mood - Skin Skin exam: Present: warm, dry, intact, normal color. Absent: rash - Vital Signs Vital signs: Vital Signs - 12hr 09/06/18 09/06/18 04:26 12:02 Temperature 99.0 F 98.1 F Pulse Rate 84 77 Respiratory 20 20 Rate Blood Pressure 107/61 138/70 O2 Sat by Pulse 100 94 Oximetry - Lab 09/06/18 05:49 09/06/18 05:49 Most recent lab results Calcium 8.2 mg/dL (8.4-10.2) L 09/06/18 05:49 Medications & Allergies - Medications Allergies/Adverse Reactions: Allergies Sulfa (Sulfonamide Antibiotics) Allergy (Verified 07/02/15 09:43) Vomiting Home Medications: Home Medications Medication Instructions Recorded Confirmed Last Taken Type Carvedilol [Coreg] 12.5 mg PO DAILY 07/02/15 07/26/17 07/25/17 History Lisinopril [Zestril TAB] 40 mg PO BID 07/02/15 07/26/17 07/25/17 History Aspirin EC [Aspirin Enteric Coated 81 mg PO QDAY 08/01/15 07/26/17 07/19/17 History TAB] Insulin Regular, Human [HumuLIN R] 1 - 100 unit SUB-Q PRN PRN 08/01/15 07/23/17 08/10/15 History Isosorbibe Dinit/Hydralazine 1 each PO TID 08/01/15 07/26/17 07/25/17 History [Bidil Tablet] Levemir Flextouch 15 unit SUB-Q QHS 08/01/15 07/23/17 08/11/15 21:30 History 15 UNITS Simvastatin [Zocor TAB] 40 mg PO QHS 08/01/15 07/26/17 07/23/17 History Lansoprazole [Prevacid] 15 mg PO QDAY 08/12/15 07/26/17 07/25/17 History Oxycodone HCl/Acetaminophen 1 each PO Q6HR PRN #20 tablet 10/05/15 07/23/17 Un known Rx [Percocet 10/325 mg] Active Medications: Generic Name Dose Route Start Last Admin Trade Name Freq PRN Reason Stop Dose Admin Acetaminophen 650 mg 09/04/18 06:08 Tylenol PO Q4H PRN Fever >101 Carvedilol 12.5 mg 09/04/18 10:00 09/06/18 12:39 Coreg PO 12.5 mg DAILY MARYA Administration Dextrose 50 ml 09/04/18 01:09 D50w (25gm) Syringe IV PRN PRN Hypoglycemia Epoetin Daniel 4,200 unit 09/05/18 11:43 Procrit IV GUZMAN PRN hemodialysis Hydralazine HCl 20 mg 09/04/18 06:10 09/04/18 06:50 Apresoline IV 20 mg Q6H PRN Administration Blood Pressure Sodium Chloride 100 mls @ 999 mls/hr 09/05/18 12:00 Nacl 0.9% IV GUZMAN PRN Hypotension Insulin Human Regular 0 units 09/04/18 07:30 09/06/18 11:30 Humulin R SUB-Q Not Given AC [facility] Protocol Insulin Human Regular 0 units 09/04/18 22:00 09/05/18 22:04 Humulin R SUB-Q 1 units QHS MARYA Administration Protocol Isosorbide Dinitrate/Hydralazine 1 each 09/04/18 08:00 09/06/18 13:16 Bidil 20/37.5mg PO Not Given TID MARYA Lisinopril 40 mg 09/04/18 10:00 09/06/18 12:38 Zestril PO 40 mg BID MARYA Administration Morphine Sulfate 2 mg 09/04/18 11:16 09/05/18 22:41 Morphine IV 2 mg Q3H PRN Administration Pain , MODERATE Ondansetron HCl 4 mg 09/04/18 06:09 09/04/18 14:50 Zofran IV 4 mg Q4H PRN Administration Nausea And Vomiting Oxycodone HCl 5 mg 09/04/18 01:23 09/04/18 04:14 Roxicodone PO 5 mg Q6H PRN Administration Pain, Moderate (4-6) Oxycodone/Acetaminophen 1 tab 09/04/18 01:11 09/04/18 04:15 Percocet 5/325 PO 1 tab Q6H PRN Administration Pain, Moderate (4-6) Pantoprazole Sodium 20 mg 09/04/18 10:00 09/06/18 12:38 Protonix PO 20 mg QDAY MARYA Administration Pravastatin Sodium 80 mg 09/04/18 22:00 09/05/18 22:05 Pravachol PO 80 mg QHS MARYA Administration
== END 2018-09-06 17:10 | disposition home or self-care (01) | DRG 314 ==
LOC: ED 19:21 → 3A 09-04 03:41
PROVIDERS: ADMIT Internal Medicine; ATTEND Internal Medicine
PROC: 5A1D70Z Performance of Urinary Filtration, Intermittent, Less than 6 Hours Per Day (ICD-10-PCS; principal; 2018-09-05)
DX: T82.838A Hemorrhage due to vascular prosthetic devices, implants and grafts, initial encounter (principal); N18.6 End stage renal disease; I13.2 Hypertensive heart and chronic kidney disease with heart failure and with stage 5 chronic kidney disease, or end stage renal disease; I50.9 Heart failure, unspecified; K21.9 Gastro-esophageal reflux disease without esophagitis; T82.868A Thrombosis due to vascular prosthetic devices, implants and grafts, initial encounter; Y83.8 Other surgical procedures as the cause of abnormal reaction of the patient, or of later complication, without mention of misadventure at the time of the procedure; Y92.89 Other specified places as the place of occurrence of the external cause; E11.22 Type 2 diabetes mellitus with diabetic chronic kidney disease; E66.9 Obesity, unspecified; D63.1 Anemia in chronic kidney disease; E78.5 Hyperlipidemia, unspecified; Z88.2 Allergy status to sulfonamides; Z68.35 Body mass index [BMI] 35.0-35.9, adult; Z90.49 Acquired absence of other specified parts of digestive tract; Z79.4 Long term (current) use of insulin
CPT/HCPCS: 36415; 80048; 80053; 80074; 82962; 85025; 85027; 87116; 93970; 93990; G0378; A9270-GY; J0360; J0885; J1815; J2270; J2405; J2597; J7030

== ENCOUNTER 2019-04-05 11:12 | Day surgery (SDC) | payer MEDICARE, OTHER ==
[2019-04-05] MEDS ORDERED: HEPARIN/NS 5000 UNIT/500ML(CATH LAB) 500 ML IR ONE (12:41)
[2019-04-05] MEDS ORDERED: HEPARIN 10,000 UNITS/10 ML ONE (12:41)
--- NOTE | 2019-04-05 13:05 | History and Physical Report ---
History of Present Illness Date of examination: 04/05/19 Date of admission: 04/05/2019 Chief complaint: malfunctioning right arm av graft History of present illness: HPI: 59yo female with ESRD on HD via right arm AV Graft presents with malfunctioning av graft from her dialysis center. The patient was noted to have an absent thrill/bruit at her center and was sent for further evaluation. Otherwise, patient with no complaints. PE: NAD, A&Ox3 RRR non-labored respirations right arm AV graft no thrill/bruit palpated A/P: concerning for thrombosed av graft plan for right arm fistulogram/thrombectomy today patient consented Medications and Allergies Allergies Allergy/AdvReac Type Severity Reaction Status Date / Time Sulfa (Sulfonamide Allergy Vomiting Verified 07/02/15 09:43 Antibiotics) Home Medications Medication Instructions Recorded Confirmed Last Taken Type Aspirin EC [Halfprin EC] 81 mg PO QDAY 08/01/15 04/05/19 04/04/19 History 81mg Simvastatin [Zocor TAB] 40 mg PO QHS 08/01/15 04/05/19 04/04/19 History 40mg Calcium Acetate [Phoslo] 667 mg PO TID 04/05/19 04/05/19 04/04/19 History 667mg Carvedilol [Coreg] 6.25 mg PO BID 04/05/19 04/05/19 04/04/19 History 6.25mg Ergocalciferol (Vitamin D2) 1 cap PO 1XW 04/05/19 04/05/19 04/02/19 History [Vitamin D2] 1 Losartan [Cozaar] 50 mg PO BID 04/05/19 04/05/19 04/04/19 History 50mg amLODIPine [Norvasc] 5 mg PO DAILY 04/05/19 04/05/19 04/04/19 History 5mg Exam - Constitutional Vitals: Temp Pulse Resp BP Pulse Ox 98.5 F 67 16 167/73 100 04/05/19 12:09 04/05/19 12:09 04/05/19 12:09 04/05/19 12:09 04/05/19 12:09
[2019-04-05] MEDS: XYLOCAINE 1%/ EPI 1:100,000 INFILTRATI ONE ×4 (13:14→13:49)
[2019-04-05] MEDS: SUBLIMAZE ONE ×2 (13:19→13:42)
[2019-04-05] MEDS: VERSED ONE ×2 (13:19→13:42)
--- NOTE | 2019-04-05 14:15 | Post Operative Note ---
Pre-op diagnosis: ESRD Post-op diagnosis: same Findings: 90% stenosis of the venous anastomosis with thrombosed av graft, 90% stenosis of the right innominant vein, patent right subclavian and SVC, no stenosis noted at the arterial anastomosis Procedure: 1. Right Arm Percutaneous AV Graft Thrombectomy 2. Right Innominant Vein Angioplasty 3. Monitored Conscious Sedation 4. Ultrasound guidance access of right arm av graft Anesthesia: MAC, local Surgeon: KATHARINA NEGRETE Estimated blood loss: other (25ml) Pathology: none Condition: stable Disposition: same day
--- NOTE | 2019-04-05 14:22 | Short Stay Summary ---
Short Stay Documentation Date of service: 04/05/19 Narrative H&P: patient presented with a right arm thrombosed av graft. - History Principal diagnosis: ESRD Past Medical History: ESRD Social history: no significant social history - Allergies and Medications Current Medications: Allergies Sulfa (Sulfonamide Antibiotics) Allergy (Verified 07/02/15 09:43) Vomiting Home Medications Medication Instructions Recorded Confirmed Last Taken Type RX: Aspirin EC [Halfprin EC] 81 mg PO QDAY 08/01/15 04/05/19 04/04/19 History 81mg RX: Simvastatin [Zocor TAB] 40 mg PO QHS 08/01/15 04/05/19 04/04/19 History 40mg Ergocalciferol (Vitamin D2) 1 cap PO 1XW 04/05/19 04/05/19 04/02/19 History [Vitamin D2] 1 RX: Calcium Acetate [Phoslo] 667 mg PO TID 04/05/19 04/05/19 04/04/19 History 667mg RX: Carvedilol [Coreg] 6.25 mg PO BID 04/05/19 04/05/19 04/04/19 History 6.25mg RX: Losartan [Cozaar] 50 mg PO BID 04/05/19 04/05/19 04/04/19 History 50mg RX: amLODIPine [Norvasc] 5 mg PO DAILY 04/05/19 04/05/19 04/04/19 History 5mg - Physical exam General appearance: no acute distress HEENT: Atraumatic, PERRLA, EOMI Lungs: Normal air movement Heart: Regular rate Extremities: pulses intact - Hospital course Hospital course: Patient was taken to the clay processing labourer and had a right arm percutaneous thrombectomy performed. Please refer to the operative note concerning the details of the procedure. the patient tolerated the procedure well and was discharged home in stable condition. - Disposition Condition at discharge: Stable Disposition: [id number] TO HOME OR SELFCARE - Discharge Diagnoses (1) CKD (chronic kidney disease) Status: Acute Qualifiers: Chronic kidney disease stage: on chronic dialysis Qualified Code(s): N18.6 - End stage renal disease; Z99.2 - Dependence on renal dialysis Short Stay Discharge Plan Activity: no restrictions, advance as tolerated Diet: renal Follow up with: SINAN VERGARA MD [Primary Care Provider] - 7 Days KATHARINA NEGRETE MD [Staff Physician] - 7 Days Forms: AVG Arteriogram D/CInstruction
[2019-04-05 14:55] VITALS: BP 124/66
--- NOTE | 2019-04-05 15:30 | Operative Report ---
STAFF SURGEON: Dr. Vadim Anthony. PREOPERATIVE DIAGNOSIS: End-stage renal disease. POSTOPERATIVE DIAGNOSIS: End-stage renal disease. PROCEDURE PERFORMED: 1. Right arm percutaneous AV graft thrombectomy. 2. Right innominate vein angioplasty. 3. Monitored conscious sedation. 4. Ultrasound guidance, access of the right arm AV graft. COMPLICATIONS: None. ESTIMATED BLOOD LOSS: 25 mL. ANESTHESIA: Local MAC. ANGIOGRAPHIC FINDINGS: There was a 90% stenosis at the venous anastomosis with a thrombosed AV graft. There was also a 90% stenosis of the right innominate vein, the right subclavian and SVC were widely patent and there was no stenosis noted at the arterial anastomosis. INDICATIONS FOR PROCEDURE: This is a 59-year-old female with end-stage renal disease, on hemodialysis, who was noted to have no bruit or thrill at her dialysis center and therefore was sent for vascular consultation for an attempt to salvage the patient's graft. The patient was explained the risks, benefits, and alternatives of procedure, expressed understanding and wished to proceed. DESCRIPTION OF PROCEDURE: After appropriate consent was obtained, the patient was brought back to the bottle labeler, placed on table in supine position with the right arm extended. The patient's right arm was prepped and draped in the usual sterile fashion with ChloraPrep. Appropriate timeout was performed indicating correct patient, procedure, and site of the procedure. We then began the intervention by obtaining a percutaneous access of the AV graft due to antecubital fossa towards the venous anastomosis under ultrasound guidance. Once we obtained, an access needle was exchanged for a micropuncture sheath using Seldinger technique and then was upsized to a 7-Congolese sheath over a stiff J wire, then a combination of a Bentson wire and angled catheter were advanced into the central venous system. Once that was complete, the wire was removed and contrast was infused while retracting the catheter towards the AV graft, which demonstrated the findings noted above. The catheter was then readvanced into the central venous system over a Bentson wire and the patient was given 5000 units of unfractionated heparin and medications for conscious sedation. Once complete, then the Bentson wire was placed back into the SVC. The catheter was removed. I then proceeded to obtain a percutaneous access of the AV graft again using the micropuncture technique under ultrasound guidance into the axilla towards the arterial anastomosis. Once access was obtained, a needle was eventually upsized to a second 7-Congolese sheath over a stiff J wire. We then proceeded to take a #4 [place] catheter, passed it towards the arterial anastomosis and with a negative suction at the sheath, I proceeded to perform a mechanical thrombectomy of the AV graft, removing the significant amount of thrombus fragments, which were discarded. Once pulsatile flow was reestablished in the AV graft, we then proceeded to take an 8 mm x 80 [place] balloon through the initial sheath towards the venous anastomosis and proceeded to balloon angioplasty of the venous anastomosis as well as the rest of the thrombosed graft macerating the thrombus. Once that was complete, a completion angiogram of the AV graft and venous anastomosis demonstrated widely patent graft and less than 10% residual stenosis across the venous anastomosis with the lesion at the innominate vein. We then proceeded to take a 12 mm Conquest balloon and placed it across the lesion in the innominate vein. Again, this was balloon angioplastied for approximately 2 minutes and then taken down and a completion angiogram demonstrated less than 20% residual stenosis. There was a nice palpable thrill across the AV graft. The stiff wire was removed and then proceeded to remove all our sheath and the access sites were closed with a 3-0 nylon [id number] stitch. Appropriate dressing was placed. The patient tolerated the procedure well, emerged from the conscious sedation, and sent to recovery in stable condition. JOB# [id number] JAN/POPPY
== END 2019-04-05 14:55 | disposition home or self-care (01) ==
LOC: CATHLABREC 11:12
PROVIDERS: ATTEND Surgery Vascular Surgery
DX: T82.868A Thrombosis due to vascular prosthetic devices, implants and grafts, initial encounter (principal); T82.858A Stenosis of other vascular prosthetic devices, implants and grafts, initial encounter; I13.2 Hypertensive heart and chronic kidney disease with heart failure and with stage 5 chronic kidney disease, or end stage renal disease; E11.22 Type 2 diabetes mellitus with diabetic chronic kidney disease; N18.6 End stage renal disease; I50.9 Heart failure, unspecified; D64.9 Anemia, unspecified; I42.9 Cardiomyopathy, unspecified; E78.00 Pure hypercholesterolemia, unspecified; K21.9 Gastro-esophageal reflux disease without esophagitis; Z88.2 Allergy status to sulfonamides; Z79.82 Long term (current) use of aspirin; Z79.899 Other long term (current) drug therapy; Z86.010 Personal history of colon polyps; Z83.71 Family history of colonic polyps; Z98.49 Cataract extraction status, unspecified eye; Z98.890 Other specified postprocedural states; Z90.710 Acquired absence of both cervix and uterus; Z90.49 Acquired absence of other specified parts of digestive tract; Z87.440 Personal history of urinary (tract) infections; Z87.442 Personal history of urinary calculi; Y83.8 Other surgical procedures as the cause of abnormal reaction of the patient, or of later complication, without mention of misadventure at the time of the procedure; Y92.89 Other specified places as the place of occurrence of the external cause
CPT/HCPCS: 36905; 76937; 99156; 99157; C1725; C1757; C1769; C1894; J1644; J2250; J3010; Q9967